=== PATIENT | female | born 1965 | race Caucasian/White ===

== ENCOUNTER 2023-12-15 16:44 | Inpatient (IN) | payer OTHER ==
[~2023-12-15] VITALS: Ht 165.1 cm; Wt 59.4 kg
[2023-12-15] MEDS: IV NS 0.9% 1,000 ML BAG IV ONE ×2 (17:25→18:49)
[2023-12-15 17:42] LABS: BASOPHILS % (AUTO) 0.5 % (0.0-2.0); EOSINOPHILS % (AUTO) 0.1 % (0.0-6.0); HEMATOCRIT 40 % (33-45); HEMOGLOBIN 13.1 g/dL (11.5-14.8); LYMPHOCYTES # (AUTO) 3.1 K/uL (0.8-4.8); LYMPHOCYTES % (AUTO) 30.9 % (20.0-44.0); MEAN CORPUSCULAR HEMOGLOBIN 28 PG (26.0-33.0); MEAN CORPUSCULAR HGB CONC 33 g/dl (31.0-36.0); MEAN CORPUSCULAR VOLUME 87 fL (82-100); MONOCYTES # (AUTO) 0.3 K/uL (0.1-1.30); MONOCYTES % (AUTO) 3.5 % (2.0-12.0); NEUTROPHILS # (AUTO) 6.5 K/uL (1.8-8.9); PLATELET COUNT (AUTO) 211 K/uL (150-450); RED BLOOD CELL COUNT(AUTO) 4.61 MIL/uL (4.0-5.2); RED CELL DISTRIBUTION WIDTH 14.8 % (11.5-15.0)
[2023-12-15 17:51] LABS: CALCIUM, SERUM 8.4 mg/dL (8.5-10.1); CARBON DIOXIDE 24 mmol/L (21-32); CHLORIDE 96 mmol/L (98-107); CREATININE 4.4 mg/dL (0.6-1.3); GLUCOSE 112 mg/dL (74-106); POTASSIUM 4.8 mmol/L (3.5-5.1); SODIUM SERUM 135 mmol/L (136-145)
[2023-12-15 17:57] LABS: ALANINE AMINOTRANSFERASE 100 U/L (12-78); ALBUMIN 3.7 g/dL (3.4-5.0); ALCOHOL, BLOOD 121 mg/dL (0-10); ALKALINE PHOSPHATASE 156 U/L (46-116); ASPARTATE AMINOTRANSFERASE 107 U/L (15-37); BILIRUBIN,TOTAL 0.5 mg/dL (0.2-1.0); SALICYLATE 6.3 mg/dL (2.8-20.0); TOTAL PROTEIN, SERUM 7.8 g/dL (6.4-8.2)
[2023-12-15 18:01] LABS: UREA NITROGEN, BLOOD 86 mg/dL (7-18)
[2023-12-15 18:04] LABS: THYROID STIMULATING HORMONE 0.213 uIU/mL (0.358-3.74)
[2023-12-15 18:10] LABS: INR 0.97 (0.91-1.10); PARTIAL THROMBOPLASTIN TIME 27.9 SEC (24.3-34.3); PROTHROMBIN TIME 10.3 SECS (9.2-11.1)
[2023-12-15 18:11] LABS: APPEARANCE,URINE CLEAR (CLEAR); BILIRUBIN,URINE NEGATIVE (NEGATIVE); BLOOD, URINE 1+ Ery/uL (NEGATIVE); COLOR,URINE YELLOW (YELLOW); KETONES,URINE NEGATIVE (NEGATIVE); LEUKOCYTE ESTERASE ,URINE NEGATIVE (NEGATIVE); NITRITE, URINE NEGATIVE (NEGATIVE); PH,URINE 5.5 (5.0-8.0); PROTEIN,URINE TRACE mg/dl (NEGATIVE); UGLUCOSE NEGATIVE (NEGATIVE); UROBILINOGEN,URINE 0.2 EU/dL (0.2)
[2023-12-15 18:18] LABS: AMPHETAMINE, URINE NEGATIVE (NEGATIVE); BARBITURATE, URINE NEGATIVE (NEGATIVE); BENZODIAZEPINE, URINE NEGATIVE (NEGATIVE); CANNABINOID, URINE NEGATIVE (NEGATIVE); COCCAINE, URINE NEGATIVE (NEGATIVE); OPIATE, URINE NEGATIVE (NEGATIVE); PHENCYCLIDINE SCREEN,URINE NEGATIVE (NEGATIVE)
[2023-12-15 18:28] LABS: ADD URINE CULTURE NO; BACTERIA,URINE None seen /HPF (None Seen); URINE AMORPHOUS URATE Few /HPF (None Seen); WBC,URINE 0-2 /HPF (0-3)
[2023-12-15 18:42] LABS: BILIRUBIN,DIRECT 0.2 mg/dL (0.0-0.2)
[2023-12-15 18:45] LABS: ACETAMINOPHEN <10 ug/ml (10-30)
[2023-12-15] MEDS ORDERED: OLANZAPINE 10 MG VIAL IM ONE ×2 (19:00→19:32)
[2023-12-15] MEDS: OLANZAPINE 10 MG VIAL IM ONE (19:38)
[2023-12-15 22:40] VITALS: BP 142/81; TEMP 99.3; O2SAT 99
[2023-12-15] MEDS ORDERED: ONDANSETRON HCL/PF 4 MG/2 ML VIAL IVP PRN (23:30)
[2023-12-15] MEDS ORDERED: MAGNESIUM HYDROXIDE 30 ML UDC PO PRN (23:30)
[2023-12-15] MEDS ORDERED: MAG HYDROX/AL HYDROX/SIMETH 30 ML UDC PO PRN (23:30)
[2023-12-15] MEDS ORDERED: Z GUARD REMEDY 4 OZ OINT TP PRN (23:30)
[2023-12-15] MEDS ORDERED: ZOLPIDEM TARTRATE 5 MG TABLET PO PRN (23:30)
[2023-12-15] MEDS: IV NS 0.9% 1,000 ML IV PRN (23:45)
[2023-12-15 23:47] VITALS: BP 174/79; TEMP 99.3; O2SAT 92
[2023-12-15 23:53] VITALS: BP 142/81; TEMP 99.3; O2SAT 100
[2023-12-16] VITALS: BP 149/83; TEMP 98.6; O2SAT 96
[2023-12-16] MEDS: LORAZEPAM INJ 2 MG/ML VIAL IV PRN (03:34)
[2023-12-16 04:00] VITALS: BP 142/78; TEMP 99; O2SAT 97
[2023-12-16 04:28] VITALS: BP 142/78; TEMP 99; O2SAT 97
[2023-12-16 07:23] LABS: ALBUMIN 3.1 g/dL (3.4-5.0); BILIRUBIN,DIRECT 0.2 mg/dL (0.0-0.2); BILIRUBIN,TOTAL 0.6 mg/dL (0.2-1.0); CALCIUM, SERUM 7.5 mg/dL (8.5-10.1); PHOSPHORUS 2.9 mg/dL (2.5-4.9); POTASSIUM 4.2 mmol/L (3.5-5.1); TOTAL PROTEIN, SERUM 6.7 g/dL (6.4-8.2)
[2023-12-16 07:27] LABS: MAGNESIUM 1.1 mg/dL (1.8-2.4)
[2023-12-16 07:30] VITALS: BP 154/89; TEMP 98.1; O2SAT 95
[2023-12-16] MEDS: PANTOPRAZOLE 40 MG TABLET.DR PO SCH (07:30)
[2023-12-16] MEDS: DEXTROSE 50%-WATER 50 ML DISP.SYRIN IV PRN (07:49)
[2023-12-16] MEDS: IV D5/ 0.9% NACL 1,000 ML IV PRN (07:55)
[2023-12-16 09:24] LABS: BASOPHILS % (AUTO) 0.3 % (0.0-2.0); EOSINOPHILS % (AUTO) 0.1 % (0.0-6.0); HEMATOCRIT 33 % (33-45); HEMOGLOBIN 10.8 g/dL (11.5-14.8); LYMPHOCYTES # (AUTO) 3.8 K/uL (0.8-4.8); LYMPHOCYTES % (AUTO) 27.5 % (20.0-44.0); MEAN CORPUSCULAR HEMOGLOBIN 29 PG (26.0-33.0); MEAN CORPUSCULAR HGB CONC 32 g/dl (31.0-36.0); MEAN CORPUSCULAR VOLUME 88 fL (82-100); MONOCYTES # (AUTO) 0.7 K/uL (0.1-1.30); MONOCYTES % (AUTO) 5.4 % (2.0-12.0); NEUTROPHILS # (AUTO) 9.3 K/uL (1.8-8.9); NEUTROPHILS % (AUTO) 66.7 % (43.0-81.0); PLATELET COUNT (AUTO) 163 K/uL (150-450); RED BLOOD CELL COUNT(AUTO) 3.78 MIL/uL (4.0-5.2)
[2023-12-16] MEDS: Magnesium 1GM/D5W 100ML PREMIX 100 ML IV SCH (12:48)
[2023-12-16] MEDS ORDERED: GLIP10TA11 PO (14:18)
[2023-12-16] MEDS ORDERED: CALC-1239 PO (14:18)
[2023-12-16] MEDS ORDERED: INSU100I26 SQ (14:18)
[2023-12-16] MEDS ORDERED: MAGN64TA7 PO (14:18)
[2023-12-16] MEDS ORDERED: ESCI5TAB PO (14:18)
[2023-12-16] MEDS ORDERED: SITA100T PO (14:18)
[2023-12-16] MEDS ORDERED: ATOR10TA PO (14:18)
[2023-12-16] MEDS ORDERED: LISI-768 PO (14:18)
[2023-12-16] MEDS ORDERED: QUET200T PO (14:18)
[2023-12-16] MEDS ORDERED: BUPR348T PO (14:18)
[2023-12-16] MEDS ORDERED: IBUP-1953 PO (14:18)
[2023-12-16] MEDS ORDERED: GABA-532 PO (14:18)
[2023-12-16] MEDS ORDERED: TRAZ-182 PO (14:18)
[2023-12-16] MEDS ORDERED: OMEP20CA15 PO (14:18)
[2023-12-16] MEDS ORDERED: FOLI0.8C PO (14:18)
[2023-12-16] MEDS ORDERED: [UNRECOGNIZED DRUG - OTHER] PO (14:18)
[2023-12-16] MEDS: CEFEPIME 1 GM in IV D5W 50 ML IV SCH (14:31)
[2023-12-16 16:00] VITALS: BP 158/88; TEMP 99.1; O2SAT 96
[2023-12-16 20:00] VITALS: BP 143/93; TEMP 99.5; O2SAT 96
[2023-12-17] VITALS (8 sets, daily range): BP systolic 140–148; BP diastolic 78–105; TEMP 98.2–99.6; O2SAT 95–97
[2023-12-17 07:11] LABS: BASOPHILS # (AUTO) 0.1 K/uL (0.0-0.2); BASOPHILS % (AUTO) 0.4 % (0.0-2.0); EOSINOPHILS # (AUTO) 0.1 K/uL (0.0-0.7); EOSINOPHILS % (AUTO) 0.6 % (0.0-6.0); HEMATOCRIT 32 % (33-45); HEMOGLOBIN 10.4 g/dL (11.5-14.8); LYMPHOCYTES # (AUTO) 3.7 K/uL (0.8-4.8); LYMPHOCYTES % (AUTO) 31.2 % (20.0-44.0); MEAN CORPUSCULAR HEMOGLOBIN 29 PG (26.0-33.0); MEAN CORPUSCULAR HGB CONC 33 g/dl (31.0-36.0); MEAN CORPUSCULAR VOLUME 88 fL (82-100); MONOCYTES # (AUTO) 0.7 K/uL (0.1-1.30); MONOCYTES % (AUTO) 5.8 % (2.0-12.0); NEUTROPHILS # (AUTO) 7.3 K/uL (1.8-8.9); PLATELET COUNT (AUTO) 117 K/uL (150-450); RED CELL DISTRIBUTION WIDTH 14.6 % (11.5-15.0); WHITE BLOOD COUNT (AUTO) 11.8 K/uL (4.3-11.0)
[2023-12-17 07:31] LABS: ALBUMIN 2.9 g/dL (3.4-5.0); BILIRUBIN,TOTAL 0.9 mg/dL (0.2-1.0); CREATININE 1.5 mg/dL (0.6-1.3); MAGNESIUM 1.3 mg/dL (1.8-2.4); PHOSPHORUS 1.9 mg/dL (2.5-4.9); POTASSIUM 3.7 mmol/L (3.5-5.1); TOTAL PROTEIN, SERUM 6.4 g/dL (6.4-8.2)
[2023-12-17] MEDS: Magnesium 1GM/D5W 100ML PREMIX 100 ML IV SCH (09:23)
[2023-12-17] MEDS ORDERED: DEXTROSE 50%-WATER 50 ML DISP.SYRIN IV PRN (13:00)
[2023-12-17] MEDS: Sodium Phosphate 15 MMOL in IV NS 0.9% 245 ML IV SCH (16:14)
[2023-12-17] MEDS: BLOOD SUGAR DIAGNOSTIC 1 EACH STRIP IN SCH (17:34)
[2023-12-17] MEDS: INSULIN REGULAR, HUMAN 100 UNIT/ML 3 ML VIAL SQ PRN (18:18)
[2023-12-18] VITALS (7 sets, daily range): BP systolic 113–156; BP diastolic 83–96; TEMP 97.5–99; O2SAT 94–96
[2023-12-18 06:44] LABS: BASOPHILS % (AUTO) 0.4 % (0.0-2.0); EOSINOPHILS # (AUTO) 0.4 K/uL (0.0-0.7); EOSINOPHILS % (AUTO) 4.2 % (0.0-6.0); HEMATOCRIT 32 % (33-45); HEMOGLOBIN 10.4 g/dL (11.5-14.8); LYMPHOCYTES # (AUTO) 3.7 K/uL (0.8-4.8); LYMPHOCYTES % (AUTO) 36.3 % (20.0-44.0); MEAN CORPUSCULAR HEMOGLOBIN 29 PG (26.0-33.0); MEAN CORPUSCULAR HGB CONC 33 g/dl (31.0-36.0); MEAN CORPUSCULAR VOLUME 89 fL (82-100); MONOCYTES # (AUTO) 0.5 K/uL (0.1-1.30); MONOCYTES % (AUTO) 4.9 % (2.0-12.0); NEUTROPHILS # (AUTO) 5.5 K/uL (1.8-8.9); NEUTROPHILS % (AUTO) 54.2 % (43.0-81.0); PLATELET COUNT (AUTO) 108 K/uL (150-450); RED BLOOD CELL COUNT(AUTO) 3.56 MIL/uL (4.0-5.2); RED CELL DISTRIBUTION WIDTH 14.1 % (11.5-15.0); WHITE BLOOD COUNT (AUTO) 10.1 K/uL (4.3-11.0)
[2023-12-18 06:54] LABS: CALCIUM, SERUM 8.2 mg/dL (8.5-10.1); CREATININE 1.1 mg/dL (0.6-1.3); MAGNESIUM 1.3 mg/dL (1.8-2.4); PHOSPHORUS 3.1 mg/dL (2.5-4.9); POTASSIUM 3.7 mmol/L (3.5-5.1)
[2023-12-18 08:07] LABS: PTH, INTACT 92 pg/mL (15-65)
[2023-12-18] MEDS: MAGNESIUM OXIDE 400 MG TABLET PO ONE (09:49)
[2023-12-18 10:10] LABS: *SPE A/G RATIO 1.1 (0.7-1.7); *SPE ALBUMIN 3.2 g/dL (2.9-4.4); *SPE ALPHA-1-GLOBULIN 0.2 g/dL (0.0-0.4); *SPE ALPHA-2-GLOBULIN 0.8 g/dL (0.4-1.0); *SPE BETA GLOBULIN 0.8 g/dL (0.7-1.3); *SPE M-SPIKE Not Observed g/dL (Not Observed); *SPE PROTEIN TOTAL 6.2 g/dL (6.0-8.5); *SPEGAMMA GLOBULIN 1.2 g/dL (0.4-1.8)
[2023-12-18] MEDS: IV NS 0.9% 1,000 ML IV PRN (12:24)
[2023-12-19 08:00] VITALS: BP 154/92; TEMP 98.6; O2SAT 98
[2023-12-19] MEDS: CEFEPIME 2 GM in IV D5W 100 ML IV SCH (09:05)
[2023-12-19] MEDS ORDERED: QUETIAPINE FUMARATE 25 MG TABLET PO PRN (12:30)
[2023-12-19] MEDS: QUETIAPINE FUMARATE 25 MG TABLET PO SCH ×2 (13:54→21:58)
[2023-12-19 16:00] VITALS: BP 150/100; TEMP 98.4; O2SAT 98
[2023-12-19 19:54] VITALS: BP 142/94; TEMP 99.1; O2SAT 98
[2023-12-20 07:00] VITALS: BP 176/92; TEMP 98.4; O2SAT 98
[2023-12-20] MEDS: ACETAMINOPHEN 325 MG TABLET PO PRN (08:58)
[2023-12-20] MEDS ORDERED: Quetiapine Fumarate PO ×2 (11:10)
[2023-12-20] MEDS ORDERED: LEVO500T90 PO (11:10)
== END 2023-12-20 13:50 | DRG 177 ==
LOC: ER 16:48 → TELE 21:36 → MED 12-18 11:29
PROVIDERS: ADMIT Student in an Organized Health Care Education/Training Program; ATTEND Nurse Practitioner Acute Care
DX: J69.0 Pneumonitis due to inhalation of food and vomit (principal); G92.8 Other toxic encephalopathy; N17.0 Acute kidney failure with tubular necrosis; E87.1 Hypo-osmolality and hyponatremia; F05 Delirium due to known physiological condition; M62.82 Rhabdomyolysis; F10.129 Alcohol abuse with intoxication, unspecified; R74.01 Elevation of levels of liver transaminase levels; E11.65 Type 2 diabetes mellitus with hyperglycemia; Y90.6 Blood alcohol level of 120-199 mg/100 ml; R94.6 Abnormal results of thyroid function studies; F29 Unspecified psychosis not due to a substance or known physiological condition; F25.9 Schizoaffective disorder, unspecified; Z79.84 Long term (current) use of oral hypoglycemic drugs; E11.649 Type 2 diabetes mellitus with hypoglycemia without coma
CPT/HCPCS: 36415; 70450-TC; 71045-TC; 72125-TC; 80048-TC; 80053-TC; 80061-TC; 80076-TC; 81001; 82140-TC; 82550-TC; 82553; 82962-TC; 83735-TC; 83970; 84100-TC; 84155; 84165; 84443-TC; 85025-TC; 85730-TC; 92526; 92611-TC; 97110-TC; 97116-TC; 97530-TC; A4223; A6253; A9563; G0378; G0480; J0692; J1815; J2060; J3475; J3490; J7030; J7042; J7050; J7060

== ENCOUNTER 2024-01-02 06:34 | Emergency (ER) | payer OTHER ==
[~2024-01-02] VITALS: Ht 154.9 cm; Wt 64.0 kg
[~2024-01-02 06:34] MED LIST: ATOR10TA PO; CALC-1239 PO; FOLI0.8C PO; GABA-532 PO; GLIP10TA11 PO; IBUP-1953 PO; INSU100I26 SQ; LEVO500T90 PO; LISI-768 PO; MAGN64TA7 PO; OMEP20CA15 PO; Quetiapine Fumarate PO; SITA100T PO; [UNRECOGNIZED DRUG - OTHER] PO
[2024-01-02] MEDS ORDERED: OLANZAPINE 10 MG VIAL IM ONE (07:04)
[2024-01-02] MEDS: OLANZAPINE 10 MG VIAL IM ONE (07:08)
[2024-01-02] MEDS ORDERED: LORAZEPAM INJ 2 MG/ML VIAL ONE (07:55)
[2024-01-02] MEDS: LORAZEPAM INJ 2 MG/ML VIAL IV ONE (08:01)
[2024-01-02 08:09] LABS: BASOPHILS # (AUTO) 0.1 K/uL (0.0-0.2); BASOPHILS % (AUTO) 0.8 % (0.0-2.0); EOSINOPHILS # (AUTO) 0.2 K/uL (0.0-0.7); EOSINOPHILS % (AUTO) 1.7 % (0.0-6.0); HEMATOCRIT 30 % (33-45); HEMOGLOBIN 9.4 g/dL (11.5-14.8); LYMPHOCYTES # (AUTO) 3.9 K/uL (0.8-4.8); LYMPHOCYTES % (AUTO) 34.4 % (20.0-44.0); MEAN CORPUSCULAR HEMOGLOBIN 28 PG (26.0-33.0); MEAN CORPUSCULAR HGB CONC 32 g/dl (31.0-36.0); MEAN CORPUSCULAR VOLUME 88 fL (82-100); MONOCYTES # (AUTO) 0.4 K/uL (0.1-1.30); MONOCYTES % (AUTO) 3.4 % (2.0-12.0); NEUTROPHILS # (AUTO) 6.8 K/uL (1.8-8.9); NEUTROPHILS % (AUTO) 59.7 % (43.0-81.0); PLATELET COUNT (AUTO) 336 K/uL (150-450); RED BLOOD CELL COUNT(AUTO) 3.36 MIL/uL (4.0-5.2); RED CELL DISTRIBUTION WIDTH 14.8 % (11.5-15.0); WHITE BLOOD COUNT (AUTO) 11.4 K/uL (4.3-11.0)
[2024-01-02 09:11] LABS: ALANINE AMINOTRANSFERASE 21 U/L (12-78); ALBUMIN 3.6 g/dL (3.4-5.0); ALCOHOL, BLOOD 188 mg/dL (0-10); ALKALINE PHOSPHATASE 127 U/L (46-116); ASPARTATE AMINOTRANSFERASE 18 U/L (15-37); BILIRUBIN,DIRECT 0.1 mg/dL (0.0-0.2); BILIRUBIN,TOTAL 0.2 mg/dL (0.2-1.0); CALCIUM, SERUM 8.7 mg/dL (8.5-10.1); CARBON DIOXIDE 21 mmol/L (21-32); CHLORIDE 109 mmol/L (98-107); CREATININE 1.8 mg/dL (0.6-1.3); GLUCOSE 124 mg/dL (74-106); SALICYLATE 3.1 mg/dL (2.8-20.0); SODIUM SERUM 143 mmol/L (136-145); TOTAL PROTEIN, SERUM 7.5 g/dL (6.4-8.2); UREA NITROGEN, BLOOD 41 mg/dL (7-18)
[2024-01-02 09:16] LABS: ACETAMINOPHEN <10 ug/ml (10-30)
[2024-01-02 09:35] LABS: APPEARANCE,URINE CLEAR (CLEAR); BILIRUBIN,URINE NEGATIVE (NEGATIVE); BLOOD, URINE NEGATIVE Ery/uL (NEGATIVE); COLOR,URINE YELLOW (YELLOW); KETONES,URINE NEGATIVE (NEGATIVE); LEUKOCYTE ESTERASE ,URINE NEGATIVE (NEGATIVE); NITRITE, URINE NEGATIVE (NEGATIVE); PROTEIN,URINE NEGATIVE (NEGATIVE); UGLUCOSE NEGATIVE (NEGATIVE); UROBILINOGEN,URINE 0.2 EU/dL (0.2)
[2024-01-02] MEDS: IV NS 0.9% 1,000 ML BAG IV ONE (10:17)
[2024-01-02 10:27] LABS: AMPHETAMINE, URINE NEGATIVE (NEGATIVE); BARBITURATE, URINE NEGATIVE (NEGATIVE); BENZODIAZEPINE, URINE NEGATIVE (NEGATIVE); CANNABINOID, URINE NEGATIVE (NEGATIVE); COCCAINE, URINE NEGATIVE (NEGATIVE); OPIATE, URINE NEGATIVE (NEGATIVE); PHENCYCLIDINE SCREEN,URINE NEGATIVE (NEGATIVE)
[2024-01-02 12:33] LABS: CALCIUM, SERUM 8.6 mg/dL (8.5-10.1); CREATININE 1.3 mg/dL (0.6-1.3); POTASSIUM 3.9 mmol/L (3.5-5.1)
[2024-01-02 15:45] VITALS: BP 128/78; TEMP 97.9; O2SAT 97
== END 2024-01-02 15:46 ==
LOC: ER 06:43
DX: N17.9 Acute kidney failure, unspecified (principal); E86.0 Dehydration; F10.229 Alcohol dependence with intoxication, unspecified; Z79.899 Other long term (current) drug therapy; Y90.6 Blood alcohol level of 120-199 mg/100 ml
CPT/HCPCS: 99285; 96372; 96374; 96361; 51701; 85025; 80048 ×2; 80076; 81003; 36415; 80143; 80320 ×2; 80307; J2060; J3490; G0480

== ENCOUNTER 2024-01-13 02:35 | Inpatient (IN) | payer OTHER ==
[~2024-01-13] VITALS: Ht 157.5 cm; Wt 63.5 kg
[2024-01-13 03:33] LABS: BASOPHILS # (AUTO) 0.3 K/uL (0.0-0.2); BASOPHILS % (AUTO) 1.8 % (0.0-2.0); EOSINOPHILS # (AUTO) 0.3 K/uL (0.0-0.7); EOSINOPHILS % (AUTO) 2.1 % (0.0-6.0); HEMATOCRIT 31 % (33-45); HEMOGLOBIN 10.1 g/dL (11.5-14.8); LYMPHOCYTES # (AUTO) 4.8 K/uL (0.8-4.8); MEAN CORPUSCULAR HEMOGLOBIN 28 PG (26.0-33.0); MEAN CORPUSCULAR HGB CONC 32 g/dl (31.0-36.0); MEAN CORPUSCULAR VOLUME 87 fL (82-100); MONOCYTES # (AUTO) 0.5 K/uL (0.1-1.30); MONOCYTES % (AUTO) 3.3 % (2.0-12.0); NEUTROPHILS # (AUTO) 9.2 K/uL (1.8-8.9); NEUTROPHILS % (AUTO) 60.8 % (43.0-81.0); PLATELET COUNT (AUTO) 244 K/uL (150-450); RED BLOOD CELL COUNT(AUTO) 3.59 MIL/uL (4.0-5.2); RED CELL DISTRIBUTION WIDTH 14.5 % (11.5-15.0); WHITE BLOOD COUNT (AUTO) 15.1 K/uL (4.3-11.0)
[2024-01-13] MEDS ORDERED: QUETIAPINE FUMARATE 100 MG TABLET ONE (03:36)
[2024-01-13] MEDS: QUETIAPINE FUMARATE 100 MG TABLET PO SCH (03:38)
[2024-01-13 03:39] LABS: APPEARANCE,URINE CLEAR (CLEAR); BILIRUBIN,URINE NEGATIVE (NEGATIVE); BLOOD, URINE 2+ Ery/uL (NEGATIVE); COLOR,URINE YELLOW (YELLOW); KETONES,URINE NEGATIVE (NEGATIVE); LEUKOCYTE ESTERASE ,URINE 1+ (NEGATIVE); NITRITE, URINE NEGATIVE (NEGATIVE); PROTEIN,URINE NEGATIVE (NEGATIVE); UGLUCOSE NEGATIVE (NEGATIVE); UROBILINOGEN,URINE 0.2 EU/dL (0.2)
[2024-01-13 03:40] LABS: ADD URINE CULTURE YES; BACTERIA,URINE Rare /HPF (None Seen); SQUAMOUS EPITHELIAL CELL,UR Rare /HPF (None Seen)
[2024-01-13 04:01] LABS: CALCIUM, SERUM 7.7 mg/dL (8.5-10.1); CARBON DIOXIDE 17 mmol/L (21-32); CHLORIDE 103 mmol/L (98-107); CREATININE 2.1 mg/dL (0.6-1.3); GLUCOSE 146 mg/dL (74-106); POTASSIUM 3.5 mmol/L (3.5-5.1); SODIUM SERUM 141 mmol/L (136-145); UREA NITROGEN, BLOOD 42 mg/dL (7-18)
[2024-01-13 04:06] LABS: AMPHETAMINE, URINE NEGATIVE (NEGATIVE); BARBITURATE, URINE NEGATIVE (NEGATIVE); BENZODIAZEPINE, URINE NEGATIVE (NEGATIVE); CANNABINOID, URINE NEGATIVE (NEGATIVE); COCCAINE, URINE NEGATIVE (NEGATIVE); OPIATE, URINE NEGATIVE (NEGATIVE); PHENCYCLIDINE SCREEN,URINE NEGATIVE (NEGATIVE)
[2024-01-13 04:09] LABS: ALANINE AMINOTRANSFERASE 25 U/L (12-78); ALBUMIN 3.7 g/dL (3.4-5.0); ALCOHOL, BLOOD 139 mg/dL (0-10); ALKALINE PHOSPHATASE 167 U/L (46-116); ASPARTATE AMINOTRANSFERASE 19 U/L (15-37); BILIRUBIN,DIRECT 0.1 mg/dL (0.0-0.2); BILIRUBIN,TOTAL 0.3 mg/dL (0.2-1.0); TOTAL PROTEIN, SERUM 7.7 g/dL (6.4-8.2)
[2024-01-13 04:10] LABS: ACETAMINOPHEN <10 ug/ml (10-30); SALICYLATE 1.5 mg/dL (2.8-20.0)
[2024-01-13 04:28] LABS: ACETONE, SERUM NEGATIVE (NEGATIVE)
[2024-01-13 04:38] LABS: THYROID STIMULATING HORMONE 1.115 uIU/mL (0.358-3.74)
[2024-01-13] MEDS: IV NS 0.9% 1,000 ML BAG IV ONE (04:49)
[2024-01-13] MEDS ORDERED: LORAZEPAM INJ 2 MG/ML VIAL ONE (05:32)
[2024-01-13] MEDS: LORAZEPAM INJ 2 MG/ML VIAL IV ONE (05:33)
[2024-01-13] MEDS ORDERED: MAGNESIUM HYDROXIDE 30 ML UDC PO PRN (06:30)
[2024-01-13] MEDS ORDERED: ONDANSETRON HCL/PF 4 MG/2 ML VIAL IVP PRN (06:30)
[2024-01-13] MEDS ORDERED: ACETAMINOPHEN 325 MG TABLET PO PRN (06:30)
[2024-01-13] MEDS ORDERED: Z GUARD REMEDY 4 OZ OINT TP PRN (06:30)
[2024-01-13] MEDS ORDERED: IV NS 0.9% 1,000 ML IV PRN (06:30)
[2024-01-13] MEDS ORDERED: PANTOPRAZOLE 40 MG TABLET.DR PO ONE (07:44)
[2024-01-13] MEDS: PANTOPRAZOLE 40 MG TABLET.DR PO SCH (07:44)
[2024-01-13] MEDS ORDERED: LORAZEPAM INJ 2 MG/ML VIAL IV PRN (08:00)
[2024-01-13] MEDS ORDERED: CEFTRIAXONE 1GM BAG (ER ONLY) 50 ML IV ONE (08:30)
[2024-01-13] MEDS: CEFTRIAXONE 1 G in IV D5W 50 ML IV SCH (08:31)
[2024-01-13 09:30] VITALS: TEMP 98.7; O2SAT 98
[2024-01-13] MEDS ORDERED: DEXTROSE 50%-WATER 50 ML DISP.SYRIN IV PRN (12:00)
[2024-01-13] MEDS: IV NS 0.9% 1,000 ML IV SCH (12:45)
[2024-01-13] MEDS: CHLORDIAZEPOXIDE HCL 25 MG CAPSULE PO SCH (12:46)
[2024-01-13] MEDS: QUETIAPINE FUMARATE 25 MG TABLET PO SCH ×2 (12:46→22:53)
[2024-01-13] MEDS: BLOOD SUGAR DIAGNOSTIC 1 EACH STRIP VI SCH (13:25)
[2024-01-13] MEDS: INSULIN GLARGINE, 100 UNIT/ML CARTRIDGE SQ SCH (13:26)
[2024-01-13] MEDS ORDERED: OMEPRAZOLE 20 MG CAPSULE.DR PO SCH (17:00)
[2024-01-13] MEDS: *INSULIN REGULAR(HUMULIN R)HUM 100 UNIT/ML VIAL SQ PRN (22:49)
[2024-01-13] MEDS: ATORVASTATIN 10 MG TABLET PO SCH (22:51)
[2024-01-13] MEDS: GABAPENTIN 100 MG CAPSULE PO SCH (22:52)
[2024-01-14 08:10] LABS: CALCIUM, SERUM 7.1 mg/dL (8.5-10.1); CREATININE 1.2 mg/dL (0.6-1.3); PHOSPHORUS 2.7 mg/dL (2.5-4.9); POTASSIUM 4.1 mmol/L (3.5-5.1)
[2024-01-14 08:14] LABS: BASOPHILS # (AUTO) 0.1 K/uL (0.0-0.2); BASOPHILS % (AUTO) 0.7 % (0.0-2.0); EOSINOPHILS # (AUTO) 0.3 K/uL (0.0-0.7); HEMATOCRIT 30 % (33-45); HEMOGLOBIN 9.8 g/dL (11.5-14.8); LYMPHOCYTES # (AUTO) 3.8 K/uL (0.8-4.8); LYMPHOCYTES % (AUTO) 37.4 % (20.0-44.0); MEAN CORPUSCULAR HEMOGLOBIN 29 PG (26.0-33.0); MEAN CORPUSCULAR HGB CONC 32 g/dl (31.0-36.0); MEAN CORPUSCULAR VOLUME 88 fL (82-100); MONOCYTES # (AUTO) 0.5 K/uL (0.1-1.30); MONOCYTES % (AUTO) 5.1 % (2.0-12.0); NEUTROPHILS # (AUTO) 5.4 K/uL (1.8-8.9); NEUTROPHILS % (AUTO) 53.8 % (43.0-81.0); PLATELET COUNT (AUTO) 187 K/uL (150-450); RED BLOOD CELL COUNT(AUTO) 3.43 MIL/uL (4.0-5.2); RED CELL DISTRIBUTION WIDTH 14.5 % (11.5-15.0); WHITE BLOOD COUNT (AUTO) 10.1 K/uL (4.3-11.0)
[2024-01-14 08:20] VITALS: BP 147/89
[2024-01-14] MEDS: LISINOPRIL (5MG) 5 MG TABLET PO SCH (08:20)
[2024-01-14] MEDS: INSULIN REGULAR, HUMAN 100 UNIT/ML 3 ML VIAL SQ PRN (08:23)
[2024-01-14 08:51] LABS: MAGNESIUM 1.2 mg/dL (1.8-2.4)
[2024-01-14] MEDS: MAG HYDROX/AL HYDROX/SIMETH 30 ML UDC PO PRN (09:37)
[2024-01-14] MEDS: Magnesium 1GM/D5W 100ML PREMIX 100 ML IV SCH (10:29)
[2024-01-14 13:30] LABS: CREATININE, URINE 31.6 MG/DL (30.0-125.0); URINE TOTAL PROTEIN 6.3 mg/dL (0-11.9)
[2024-01-14] MEDS: MAGNESIUM OXIDE 400 MG TABLET PO ONE (14:08)
[2024-01-14] MEDS: IV LR 1000 ML 1,000 ML IV ONE (15:02)
== END 2024-01-14 17:04 | disposition left against medical advice (07) | DRG 871 ==
LOC: ER 02:39 → TELE1 11:09
PROVIDERS: ADMIT Internal Medicine; ATTEND Nurse Practitioner Family
DX: A41.9 Sepsis, unspecified organism (principal); G92.8 Other toxic encephalopathy; N17.0 Acute kidney failure with tubular necrosis; N39.0 Urinary tract infection, site not specified; E87.20 Acidosis, unspecified; R65.20 Severe sepsis without septic shock; Z20.822 Contact with and (suspected) exposure to COVID-19; Z79.84 Long term (current) use of oral hypoglycemic drugs; Z79.4 Long term (current) use of insulin; Z79.899 Other long term (current) drug therapy; E78.5 Hyperlipidemia, unspecified; E11.22 Type 2 diabetes mellitus with diabetic chronic kidney disease; F31.9 Bipolar disorder, unspecified; F10.129 Alcohol abuse with intoxication, unspecified; Y90.6 Blood alcohol level of 120-199 mg/100 ml; D64.9 Anemia, unspecified; E83.42 Hypomagnesemia; E86.9 Volume depletion, unspecified; I12.9 Hypertensive chronic kidney disease with stage 1 through stage 4 chronic kidney disease, or unspecified chronic kidney disease; N18.9 Chronic kidney disease, unspecified; M89.8X9 Other specified disorders of bone, unspecified site; Z53.29 Procedure and treatment not carried out because of patient's decision for other reasons; Z91.148 Patient's other noncompliance with medication regimen for other reason; B96.89 Other specified bacterial agents as the cause of diseases classified elsewhere
CPT/HCPCS: 36415; 71045-TC; 76770-TC; 80048-TC; 80076-TC; 81001; 82010-TC; 82570-TC; 82962-TC; 83605-TC; 83735-TC; 84100-TC; 84300-TC; 84443-TC; 85025-TC; 87086-TC; G0378; G0480; J0696; J1815; J2060; J3475; J7030; J7060

== ENCOUNTER 2024-10-21 23:43 | Emergency (ER) | payer OTHER, MEDICAID ==
[~2024-10-21] VITALS: Ht 152.4 cm; Wt 65.8 kg
[2024-10-21 23:55] VITALS: BP 155/70; TEMP 98.5; O2SAT 99
== END 2024-10-22 00:48 ==
LOC: ER 23:58
DX: Z02.89 Encounter for other administrative examinations (principal); E11.9 Type 2 diabetes mellitus without complications; I10 Essential (primary) hypertension; Z79.84 Long term (current) use of oral hypoglycemic drugs; Z79.899 Other long term (current) drug therapy

== ENCOUNTER 2025-03-20 18:25 | Inpatient (IN) | payer BC, MEDICAID ==
[~2025-03-20] VITALS: Ht 154.9 cm; Wt 65.8 kg
[2025-03-20] MEDS: IV NS 0.9% 500 ML BAG IV ONE (19:15)
[2025-03-20 19:21] LABS: PLATELET COUNT (AUTO) 197 K/uL (150-450); RED BLOOD CELL COUNT(AUTO) 4.03 MIL/uL (4.0-5.2); RED CELL DISTRIBUTION WIDTH 12.7 % (11.5-15.0); WHITE BLOOD COUNT (AUTO) 15.3 K/uL (4.3-11.0)
[2025-03-20] MEDS: FOLIC ACID 1 MG TABLET PO ONE (19:34)
[2025-03-20] MEDS: Thiamine 100 MG in IV D5W 50 ML IV SCH ×2 (19:35→23:22)
[2025-03-20 19:38] LABS: CALCIUM, SERUM 9.0 mg/dL (8.5-10.1); CREATININE 1.6 mg/dL (0.6-1.3); SODIUM SERUM 135 mmol/L (136-145); UREA NITROGEN, BLOOD 30 mg/dL (7-18)
[2025-03-20 19:44] LABS: ALCOHOL, BLOOD 274 mg/dL (0-10); ASPARTATE AMINOTRANSFERASE 13 U/L (15-37); TOTAL PROTEIN, SERUM 7.3 g/dL (6.4-8.2)
[2025-03-20] MEDS ORDERED: MAGNESIUM HYDROXIDE 30 ML UDC PO PRN (22:00)
[2025-03-20] MEDS ORDERED: LORAZEPAM INJ 2 MG/ML VIAL IV PRN (22:00)
[2025-03-20] MEDS ORDERED: MAG HYDROX/AL HYDROX/SIMETH 30 ML UDC PO PRN (22:00)
[2025-03-20] MEDS ORDERED: ONDANSETRON HCL/PF 4 MG/2 ML VIAL IVP PRN (22:00)
[2025-03-20] MEDS ORDERED: Z GUARD REMEDY 4 OZ OINT TP PRN (22:00)
[2025-03-20] MEDS ORDERED: ACETAMINOPHEN 325 MG TABLET PO PRN (22:00)
[2025-03-20] MEDS: QUETIAPINE FUMARATE 25 MG TABLET PO SCH (22:19)
[2025-03-20 22:33] LABS: LACTIC ACID 4.8 mmol/L (0.4-2.0)
[2025-03-20] MEDS: CEFTRIAXONE 1GM BAG (ER ONLY) 50 ML IV ONE (22:40)
[2025-03-20] MEDS: CEFTRIAXONE 1 G in IV D5W 50 ML IV SCH (22:53)
[2025-03-20] MEDS: GABAPENTIN 100 MG CAPSULE PO SCH (23:05)
[2025-03-20] MEDS: ATORVASTATIN 10 MG TABLET PO SCH (23:05)
[2025-03-20] MEDS: CHLORDIAZEPOXIDE HCL 25 MG CAPSULE PO SCH (23:06)
[2025-03-21] VITALS (7 sets, daily range): BP systolic 95–112; BP diastolic 60–67; TEMP 97.1–98.6; O2SAT 94–98
[2025-03-21] MEDS: INSULIN GLARGINE,BASAGLAR 100 UNIT/ML INSULN.PEN SQ SCH (00:22)
[2025-03-21] MEDS ORDERED: DEXTROSE 50%-WATER 50 ML DISP.SYRIN IV PRN (01:00)
[2025-03-21] MEDS: *INSULIN REGULAR(HUMULIN R)HUM 100 UNIT/ML VIAL SQ PRN (01:29)
[2025-03-21] MEDS: IV NS 0.9% 1,000 ML IV PRN (02:16)
[2025-03-21 07:09] LABS: PLATELET COUNT (AUTO) 163 K/uL (150-450); RED BLOOD CELL COUNT(AUTO) 3.45 MIL/uL (4.0-5.2); RED CELL DISTRIBUTION WIDTH 12.6 % (11.5-15.0); WHITE BLOOD COUNT (AUTO) 9.2 K/uL (4.3-11.0)
[2025-03-21] MEDS: INSULIN REGULAR, HUMAN 100 UNIT/ML 3 ML VIAL SQ PRN (07:53)
[2025-03-21] MEDS: BLOOD SUGAR DIAGNOSTIC 1 EACH STRIP VI SCH (07:53)
[2025-03-21 08:27] LABS: ASPARTATE AMINOTRANSFERASE 11.0 U/L (15-37); CALCIUM, SERUM 7.9 mg/dL (8.5-10.1); CREATININE 1.6 mg/dL (0.6-1.3); PHOSPHORUS 1.9 mg/dL (2.5-4.9); SODIUM SERUM 137.0 mmol/L (136-145); TOTAL PROTEIN, SERUM 6.2 g/dL (6.4-8.2); UREA NITROGEN, BLOOD 29.0 mg/dL (7-18)
[2025-03-21] MEDS: PANTOPRAZOLE 40 MG VIAL IV SCH (08:51)
[2025-03-21] MEDS: NICOTINE PATCH (14MG) 14 MG PATCH.TD24 TD SCH (08:51)
[2025-03-21] MEDS: QUETIAPINE FUMARATE 25 MG TABLET PO SCH (08:52)
[2025-03-21] MEDS: FOLIC ACID 1 MG TABLET PO SCH (08:52)
[2025-03-21] MEDS: LISINOPRIL (5MG) 5 MG TABLET PO SCH (08:52)
[2025-03-21] MEDS: LINAGLIPTIN 5 MG TABLET PO SCH (08:52)
[2025-03-21] MEDS: NEUTRA PHOS 1 POWD.PACKET PO ONE (11:29)
[2025-03-21 12:24] LABS: IRON, SERUM 54 ug/dl (50-175)
[2025-03-21] MEDS: CHLORDIAZEPOXIDE HCL 25 MG CAPSULE PO SCH (16:17)
[2025-03-21] MEDS: CALCIUM CARB 600MG /VIT D 1 EACH TABLET PO SCH (17:23)
[2025-03-21 17:48] LABS: APPEARANCE,URINE CLEAR (CLEAR); BLOOD, URINE NEGATIVE Ery/uL (NEGATIVE); LEUKOCYTE ESTERASE ,URINE NEGATIVE (NEGATIVE); NITRITE, URINE NEGATIVE (NEGATIVE); UGLUCOSE 3+ mg/dL (NEGATIVE)
[2025-03-21 19:30] LABS: ADD URINE CULTURE NO
[2025-03-21 19:38] LABS: EOSINOPHIL,URINE None Seen
[2025-03-21] MEDS: INSULIN GLARGINE, 100 UNIT/ML CARTRIDGE SQ SCH (21:53)
[2025-03-22] VITALS: BP 113/73; TEMP 97.9; O2SAT 98
[2025-03-22 04:00] VITALS: BP 108/63; TEMP 98; O2SAT 98
[2025-03-22 07:34] LABS: PLATELET COUNT (AUTO) 162 K/uL (150-450); RED BLOOD CELL COUNT(AUTO) 3.34 MIL/uL (4.0-5.2); RED CELL DISTRIBUTION WIDTH 12.8 % (11.5-15.0); WHITE BLOOD COUNT (AUTO) 10.7 K/uL (4.3-11.0)
[2025-03-22 07:36] LABS: ASPARTATE AMINOTRANSFERASE 8.0 U/L (15-37); CALCIUM, SERUM 7.6 mg/dL (8.5-10.1); CREATININE 1.3 mg/dL (0.6-1.3); PHOSPHORUS 1.9 mg/dL (2.5-4.9); SODIUM SERUM 141.0 mmol/L (136-145); TOTAL PROTEIN, SERUM 5.7 g/dL (6.4-8.2); UREA NITROGEN, BLOOD 27.0 mg/dL (7-18)
[2025-03-22 07:51] LABS: CREATINE KINASE, TOTAL 46.0 U/L (26-192)
[2025-03-22 07:59] LABS: CREATININE, URINE 180.5 MG/DL (30.0-125.0); URINE SODIUM, RANDOM 9.0 mmol/l (40-220); URINE TOTAL PROTEIN 57.6 mg/dL (0-11.9)
[2025-03-22 08:00] VITALS: BP 123/73; TEMP 98.6; O2SAT 95
[2025-03-22] MEDS ORDERED: Magnesium 1GM/D5W 100ML PREMIX PIGGYBACK IV ONE (09:30)
[2025-03-22] MEDS: FOLIC ACID 1 MG TABLET PO SCH (09:32)
[2025-03-22] MEDS: PANTOPRAZOLE 40 MG TABLET.DR PO SCH (09:32)
[2025-03-22] MEDS: Magnesium 1GM/D5W 100ML PREMIX 100 ML IV SCH (10:01)
[2025-03-22] MEDS: NEUTRA PHOS 1 POWD.PACKET PO ONE (11:12)
[2025-03-22 12:00] VITALS: BP 107/72; TEMP 98.1; O2SAT 97
[2025-03-22 12:55] LABS: CALCIUM, SERUM 8.0 mg/dL (8.5-10.1); CREATININE 1.2 mg/dL (0.6-1.3); SODIUM SERUM 138.0 mmol/L (136-145); UREA NITROGEN, BLOOD 25.0 mg/dL (7-18)
[2025-03-22 16:00] VITALS: BP 119/62; TEMP 98.2; O2SAT 97
[2025-03-22 20:00] VITALS: BP 106/66; TEMP 98.9; O2SAT 97
[2025-03-22] MEDS: THIAMINE HCL 100 MG TABLET PO SCH (21:32)
[2025-03-22] MEDS: INSULIN GLARGINE, 100 UNIT/ML CARTRIDGE SQ SCH (21:41)
[2025-03-23] VITALS: BP 140/73; TEMP 98.4; O2SAT 97
[2025-03-23 04:00] VITALS: BP 132/74; TEMP 98.1; O2SAT 97
[2025-03-23 07:02] LABS: CALCIUM, SERUM 8.6 mg/dL (8.5-10.1); CREATININE 1.3 mg/dL (0.6-1.3); SODIUM SERUM 137.0 mmol/L (136-145); UREA NITROGEN, BLOOD 28.0 mg/dL (7-18)
[2025-03-23 08:00] VITALS: BP 119/78; TEMP 98.6; O2SAT 98
[2025-03-23 08:07] LABS: PTH, INTACT 38 pg/mL (15-65)
[2025-03-23] MEDS ORDERED: MAGNESIUM OXIDE 400 MG TABLET PO SCH (10:00)
[2025-03-23 12:00] VITALS: BP 94/75; TEMP 97.9; O2SAT 98
[2025-03-23] MEDS ORDERED: THIA100T74 PO (13:02)
[2025-03-23] MEDS ORDERED: METF-440 PO (13:02)
== END 2025-03-23 18:20 | disposition home or self-care (01) | DRG 640 ==
LOC: ER 18:30 → TELE1 21:57 → MEDSG1 03-23 13:16
PROVIDERS: ADMIT Nurse Practitioner Acute Care; ATTEND Nurse Practitioner Acute Care
DX: E86.0 Dehydration (principal); G92.8 Other toxic encephalopathy; N17.0 Acute kidney failure with tubular necrosis; D62 Acute posthemorrhagic anemia; R29.6 Repeated falls; W19.XXXA Unspecified fall, initial encounter; S00.83XA Contusion of other part of head, initial encounter; Y92.9 Unspecified place or not applicable; Z91.81 History of falling; E11.65 Type 2 diabetes mellitus with hyperglycemia; Z79.84 Long term (current) use of oral hypoglycemic drugs; Z79.899 Other long term (current) drug therapy; Z79.4 Long term (current) use of insulin; F10.129 Alcohol abuse with intoxication, unspecified; Y90.8 Blood alcohol level of 240 mg/100 ml or more; Z86.73 Personal history of transient ischemic attack (TIA), and cerebral infarction without residual deficits; Z82.49 Family history of ischemic heart disease and other diseases of the circulatory system; Z71.6 Tobacco abuse counseling; E87.20 Acidosis, unspecified; F17.200 Nicotine dependence, unspecified, uncomplicated; E83.42 Hypomagnesemia; E83.39 Other disorders of phosphorus metabolism; E78.5 Hyperlipidemia, unspecified; I10 Essential (primary) hypertension; M89.8X9 Other specified disorders of bone, unspecified site; D72.829 Elevated white blood cell count, unspecified; D69.6 Thrombocytopenia, unspecified; D64.9 Anemia, unspecified; S09.90XA Unspecified injury of head, initial encounter; E86.9 Volume depletion, unspecified
CPT/HCPCS: 36415; 70450-TC; 71045-TC; 80048-TC; 80053-TC; 80076-TC; 81001; 82550-TC; 82570-TC; 82728-TC; 82962-TC; 83540-TC; 83605-TC; 83735-TC; 83970; 84100-TC; 84155; 84165; 84300-TC; 84484-TC; 85025-TC; 87086-TC; 92526; 92611-TC; 97116-TC; 97530-TC; A4223; G0378; G0480; J0696; J1815; J2470; J3411; J3475; J7030; J7040; J7060

== ENCOUNTER 2025-05-04 12:58 | Inpatient (IN) | payer BC, MEDICAID ==
[~2025-05-04] VITALS: Ht 157.5 cm; Wt 56.7 kg
[~2025-05-04 12:58] MED LIST changes: +METF-440 PO; +THIA100T74 PO
[2025-05-04 13:28] LABS: PLATELET COUNT (AUTO) 233 K/uL (150-450); RED BLOOD CELL COUNT(AUTO) 4.04 MIL/uL (4.0-5.2); RED CELL DISTRIBUTION WIDTH 17.4 % (11.5-15.0); WHITE BLOOD COUNT (AUTO) 13.8 K/uL (4.3-11.0)
[2025-05-04] MEDS: IV NS 0.9% 1,000 ML BAG IV ONE ×2 (13:28→13:41)
[2025-05-04] MEDS: LORAZEPAM INJ 2 MG/ML VIAL IVP ONE (13:30)
[2025-05-04 13:53] LABS: ALCOHOL, BLOOD 42.0 mg/dL (0-10); ASPARTATE AMINOTRANSFERASE 30.0 U/L (15-37); CALCIUM, SERUM 7.3 mg/dL (8.5-10.1); CREATININE 3.2 mg/dL (0.6-1.3); SODIUM SERUM 139.0 mmol/L (136-145); TOTAL PROTEIN, SERUM 7.1 g/dL (6.4-8.2); UREA NITROGEN, BLOOD 15.0 mg/dL (7-18)
[2025-05-04] MEDS ORDERED: LORAZEPAM INJ 2 MG/ML VIAL IV PRN (15:30)
[2025-05-04] MEDS ORDERED: Z GUARD REMEDY 4 OZ OINT TP PRN (15:30)
[2025-05-04] MEDS ORDERED: MAGNESIUM HYDROXIDE 30 ML UDC PO PRN (15:30)
[2025-05-04] MEDS ORDERED: ZOLPIDEM TARTRATE 5 MG TABLET PO PRN (15:30)
[2025-05-04] MEDS ORDERED: ACETAMINOPHEN 325 MG TABLET PO PRN (15:30)
[2025-05-04] MEDS: Magnesium 1GM/D5W 100ML PREMIX 100 ML IV SCH (15:50)
[2025-05-04] MEDS ORDERED: FOLIC ACID 1 MG TABLET ONE (15:53)
[2025-05-04] MEDS ORDERED: Magnesium 1GM/D5W 100ML PREMIX 100 ML IV ONE ×2 (15:53→16:18)
[2025-05-04] MEDS ORDERED: POTASSIUM CL. PREMIX PERIPHER. 100 ML ONE (15:53)
[2025-05-04] MEDS ORDERED: MIRT45TA83 PO (15:58)
[2025-05-04] MEDS ORDERED: SERT50TA PO (15:58)
[2025-05-04] MEDS ORDERED: ATOR20TA PO (15:58)
[2025-05-04] MEDS ORDERED: GLIP10TA11 PO (15:58)
[2025-05-04] MEDS ORDERED: METF-440 PO (15:58)
[2025-05-04] MEDS ORDERED: Thiamine 100 MG in IV D5W 50 ML IV SCH (16:00)
[2025-05-04] MEDS: FOLIC ACID 1 MG TABLET PO ONE (16:03)
[2025-05-04] MEDS: POTASSIUM CL. PREMIX PERIPHER. 50 ML IV SCH (16:06)
[2025-05-04 16:15] LABS: AMPHETAMINE, URINE NEGATIVE (NEGATIVE); BARBITURATE, URINE NEGATIVE (NEGATIVE); CANNABINOID, URINE NEGATIVE (NEGATIVE); COCCAINE, URINE NEGATIVE (NEGATIVE); OPIATE, URINE NEGATIVE (NEGATIVE)
[2025-05-04 16:16] LABS: BENZODIAZEPINE, URINE POSITIVE (NEGATIVE)
[2025-05-04] MEDS ORDERED: THIAMINE HCL 100 MG TABLET ONE (16:21)
[2025-05-04] MEDS: THIAMINE HCL 100 MG TABLET PO ONE (16:22)
[2025-05-04] MEDS: IV NS 0.9% 1,000 ML IV PRN (17:50)
[2025-05-04] MEDS: ASPIRIN 81 MG TAB.CHEW PO SCH (18:30)
[2025-05-04 18:43] VITALS: BP 149/84; TEMP 97.9; O2SAT 96
[2025-05-04 20:00] VITALS: BP 137/94; TEMP 98.4; O2SAT 100
[2025-05-04] MEDS: CHLORDIAZEPOXIDE HCL 25 MG CAPSULE PO SCH (20:21)
[2025-05-04] MEDS: HEPARIN SODIUM, PORCINE 5000 UNITS/1 ML VIAL SQ SCH (20:22)
[2025-05-04] MEDS: MIRTAZAPINE 45 MG TABLET PO SCH (21:11)
[2025-05-04] MEDS: ATORVASTATIN 10 MG TABLET PO SCH (21:11)
[2025-05-04 22:00] VITALS: BP 134/81; TEMP 98.2; O2SAT 100
[2025-05-05] VITALS: BP 134/81; TEMP 98.2; O2SAT 100
[2025-05-05 04:00] VITALS: BP 136/81; TEMP 98.2; O2SAT 100
[2025-05-05] MEDS: PANTOPRAZOLE 40 MG TABLET.DR PO SCH (06:33)
[2025-05-05 06:48] LABS: PLATELET COUNT (AUTO) 217 K/uL (150-450); RED BLOOD CELL COUNT(AUTO) 4.32 MIL/uL (4.0-5.2); RED CELL DISTRIBUTION WIDTH 17.7 % (11.5-15.0); WHITE BLOOD COUNT (AUTO) 8.6 K/uL (4.3-11.0)
[2025-05-05 07:09] LABS: CALCIUM, SERUM 7.2 mg/dL (8.5-10.1); CREATININE 1.6 mg/dL (0.6-1.3); PHOSPHORUS 3.1 mg/dL (2.5-4.9); SODIUM SERUM 147.0 mmol/L (136-145); UREA NITROGEN, BLOOD 11.0 mg/dL (7-18)
[2025-05-05] MEDS: ONDANSETRON HCL/PF 4 MG/2 ML VIAL IVP PRN (07:41)
[2025-05-05 08:00] VITALS: BP 167/96; TEMP 98.2; O2SAT 99
[2025-05-05] MEDS: FOLIC ACID 1 MG TABLET PO SCH (08:57)
[2025-05-05] MEDS: LINAGLIPTIN 5 MG TABLET PO SCH (08:57)
[2025-05-05] MEDS: SERTRALINE HCL 50 MG TABLET PO SCH (08:57)
[2025-05-05] MEDS: LISINOPRIL (5MG) 5 MG TABLET PO SCH (08:58)
[2025-05-05 12:00] VITALS: BP 154/81; TEMP 98.1; O2SAT 99
[2025-05-05] MEDS: MAGNESIUM OXIDE 400 MG TABLET PO ONE (13:04)
[2025-05-05] MEDS: POTASSIUM CHLORIDE 10 MEQ TABLET.SA PO SCH (13:04)
[2025-05-05] MEDS ORDERED: DEXTROSE 50%-WATER 50 ML DISP.SYRIN IV PRN (14:30)
[2025-05-05 16:00] VITALS: BP 149/92; TEMP 98.5; O2SAT 99
[2025-05-05] MEDS: Thiamine 100 MG in IV D5W 50 ML IV SCH (16:48)
[2025-05-05] MEDS: INSULIN REGULAR, HUMAN 100 UNIT/ML 3 ML VIAL SQ PRN (17:13)
[2025-05-05] MEDS: BLOOD SUGAR DIAGNOSTIC 1 EACH STRIP VI SCH (17:14)
[2025-05-05 20:00] VITALS: BP 135/75; TEMP 98.2; O2SAT 97
[2025-05-06] VITALS (7 sets, daily range): BP systolic 135–174; BP diastolic 86–100; TEMP 97.9–98.8; O2SAT 96–98
[2025-05-06] MEDS: *INSULIN REGULAR(HUMULIN R)HUM 100 UNIT/ML VIAL SQ PRN (00:01)
[2025-05-06 06:31] LABS: PLATELET COUNT (AUTO) 201 K/uL (150-450); RED BLOOD CELL COUNT(AUTO) 3.99 MIL/uL (4.0-5.2); RED CELL DISTRIBUTION WIDTH 17.6 % (11.5-15.0); WHITE BLOOD COUNT (AUTO) 8.1 K/uL (4.3-11.0)
[2025-05-06 07:10] LABS: ASPARTATE AMINOTRANSFERASE 15.0 U/L (15-37); CALCIUM, SERUM 7.6 mg/dL (8.5-10.1); CREATININE 1.4 mg/dL (0.6-1.3); PHOSPHORUS 2.1 mg/dL (2.5-4.9); SODIUM SERUM 146.0 mmol/L (136-145); TOTAL PROTEIN, SERUM 6.4 g/dL (6.4-8.2); UREA NITROGEN, BLOOD 11.0 mg/dL (7-18)
[2025-05-06] MEDS: THIAMINE HCL 100 MG TABLET PO SCH (08:44)
[2025-05-06] MEDS: Magnesium 1GM/D5W 100ML PREMIX 100 ML IV SCH (10:34)
[2025-05-06] MEDS: IV 1/2NS 1000 ML 1,000 ML IV SCH (11:35)
[2025-05-06] MEDS: MAG HYDROX/AL HYDROX/SIMETH 30 ML UDC PO PRN (11:39)
[2025-05-06] MEDS: CHLORDIAZEPOXIDE HCL 25 MG CAPSULE PO SCH (13:11)
[2025-05-06] MEDS: hydrALAZINE HCL IV 20 MG VIAL IV PRN (14:01)
[2025-05-06] MEDS: METFORMIN 500 MG TABLET PO SCH (16:47)
[2025-05-06] MEDS: K PHOS NEUTRAL 250 MG TABLET PO ONE (16:47)
[2025-05-07 04:00] VITALS: BP 143/83; TEMP 98; O2SAT 96
[2025-05-07 06:00] LABS: PLATELET COUNT (AUTO) 230 K/uL (150-450); RED BLOOD CELL COUNT(AUTO) 3.75 MIL/uL (4.0-5.2); RED CELL DISTRIBUTION WIDTH 17.4 % (11.5-15.0); WHITE BLOOD COUNT (AUTO) 8.8 K/uL (4.3-11.0)
[2025-05-07 06:06] LABS: ASPARTATE AMINOTRANSFERASE 12.0 U/L (15-37); CALCIUM, SERUM 8.7 mg/dL (8.5-10.1); CREATININE 1.2 mg/dL (0.6-1.3); PHOSPHORUS 1.1 mg/dL (2.5-4.9); SODIUM SERUM 142.0 mmol/L (136-145); TOTAL PROTEIN, SERUM 6.8 g/dL (6.4-8.2); UREA NITROGEN, BLOOD 9.0 mg/dL (7-18)
[2025-05-07 08:00] VITALS: BP 153/91; TEMP 98.4; O2SAT 99
[2025-05-07] MEDS: POTASSIUM CHLORIDE 20 MEQ TAB.PRT.SR PO SCH (10:08)
[2025-05-07] MEDS: MAGNESIUM OXIDE 400 MG TABLET PO ONE (10:09)
[2025-05-07 16:00] VITALS: BP 148/73; TEMP 97.5; O2SAT 99
[2025-05-07] MEDS: IV 1/2NS 1000 ML 1,000 ML IV PRN (17:19)
[2025-05-07 20:00] VITALS: BP 152/95; TEMP 97.7; O2SAT 99
[2025-05-08 04:00] VITALS: BP 156/96; TEMP 99; O2SAT 97
[2025-05-08 06:14] LABS: CALCIUM, SERUM 8.5 mg/dL (8.5-10.1); CREATININE 1.2 mg/dL (0.6-1.3); PHOSPHORUS 2.5 mg/dL (2.5-4.9); SODIUM SERUM 140.0 mmol/L (136-145); UREA NITROGEN, BLOOD 9.0 mg/dL (7-18)
[2025-05-08 08:00] VITALS: BP 143/100; TEMP 98.4; O2SAT 98
[2025-05-08 09:07] LABS: APPEARANCE,URINE CLEAR (CLEAR); BLOOD, URINE NEGATIVE Ery/uL (NEGATIVE); LEUKOCYTE ESTERASE ,URINE NEGATIVE (NEGATIVE); NITRITE, URINE NEGATIVE (NEGATIVE); UGLUCOSE NEGATIVE (NEGATIVE)
[2025-05-08 09:49] LABS: PLATELET COUNT (AUTO) 249 K/uL (150-450); RED BLOOD CELL COUNT(AUTO) 3.76 MIL/uL (4.0-5.2); RED CELL DISTRIBUTION WIDTH 17.2 % (11.5-15.0); WHITE BLOOD COUNT (AUTO) 7.8 K/uL (4.3-11.0)
[2025-05-08] MEDS: MAGNESIUM OXIDE 400 MG TABLET PO ONE (11:32)
[2025-05-08 16:00] VITALS: BP 138/97; TEMP 98.4; O2SAT 98
[2025-05-08] MEDS: GLUCERNA SHAKE 237 ML CAN PO SCH (17:44)
[2025-05-08 20:00] VITALS: BP 138/93; TEMP 98; O2SAT 94
[2025-05-09 04:00] VITALS: BP 177/102; TEMP 97.9; O2SAT 95
[2025-05-09 05:00] VITALS: BP 154/82
[2025-05-09 07:10] LABS: PLATELET COUNT (AUTO) 290 K/uL (150-450); RED BLOOD CELL COUNT(AUTO) 3.87 MIL/uL (4.0-5.2); RED CELL DISTRIBUTION WIDTH 16.8 % (11.5-15.0); WHITE BLOOD COUNT (AUTO) 9.0 K/uL (4.3-11.0)
[2025-05-09 07:35] LABS: CALCIUM, SERUM 9.1 mg/dL (8.5-10.1); CREATININE 1.4 mg/dL (0.6-1.3); SODIUM SERUM 140.0 mmol/L (136-145); UREA NITROGEN, BLOOD 12.0 mg/dL (7-18)
[2025-05-09 07:54] LABS: PHOSPHORUS 2.5 mg/dL (2.5-4.9)
[2025-05-09 08:00] VITALS: BP 138/80; TEMP 98.2; O2SAT 96
[2025-05-09] MEDS: MAGNESIUM OXIDE 400 MG TABLET PO ONE (09:18)
[2025-05-09 16:00] VITALS: BP 156/58; TEMP 98.2; O2SAT 96
[2025-05-09 20:00] VITALS: BP 141/83; TEMP 98.8; O2SAT 96
[2025-05-10 04:00] VITALS: BP 151/81; TEMP 98.4; O2SAT 97
[2025-05-10 06:39] LABS: PLATELET COUNT (AUTO) 288 K/uL (150-450); RED BLOOD CELL COUNT(AUTO) 3.61 MIL/uL (4.0-5.2); RED CELL DISTRIBUTION WIDTH 17.1 % (11.5-15.0); WHITE BLOOD COUNT (AUTO) 7.2 K/uL (4.3-11.0)
[2025-05-10 06:53] LABS: ASPARTATE AMINOTRANSFERASE 16.0 U/L (15-37); CALCIUM, SERUM 9.0 mg/dL (8.5-10.1); CREATININE 1.4 mg/dL (0.6-1.3); PHOSPHORUS 2.8 mg/dL (2.5-4.9); SODIUM SERUM 143.0 mmol/L (136-145); TOTAL PROTEIN, SERUM 6.1 g/dL (6.4-8.2); UREA NITROGEN, BLOOD 12.0 mg/dL (7-18)
[2025-05-10 08:00] VITALS: BP 151/95; TEMP 99.1; O2SAT 96
[2025-05-10] MEDS: MAGNESIUM OXIDE 400 MG TABLET PO ONE (10:07)
[2025-05-10 16:00] VITALS: BP 133/85; TEMP 98.6; O2SAT 97
[2025-05-10 20:00] VITALS: BP 156/79; TEMP 98.2; O2SAT 97
[2025-05-11 04:00] VITALS: BP 155/96; TEMP 98; O2SAT 97
[2025-05-11 06:50] LABS: PLATELET COUNT (AUTO) 346 K/uL (150-450); RED BLOOD CELL COUNT(AUTO) 3.62 MIL/uL (4.0-5.2); RED CELL DISTRIBUTION WIDTH 16.8 % (11.5-15.0); WHITE BLOOD COUNT (AUTO) 7.5 K/uL (4.3-11.0)
[2025-05-11 07:17] LABS: CALCIUM, SERUM 9.5 mg/dL (8.5-10.1); CREATININE 1.3 mg/dL (0.6-1.3); PHOSPHORUS 2.5 mg/dL (2.5-4.9); SODIUM SERUM 141.0 mmol/L (136-145); UREA NITROGEN, BLOOD 12.0 mg/dL (7-18)
[2025-05-11 07:53] LABS: ASPARTATE AMINOTRANSFERASE 27.0 U/L (15-37); TOTAL PROTEIN, SERUM 7.1 g/dL (6.4-8.2)
[2025-05-11 08:00] VITALS: BP 162/96; TEMP 98.8; O2SAT 96
[2025-05-11] MEDS ORDERED: MAGNESIUM OXIDE 400 MG TABLET PO SCH (11:00)
[2025-05-11] MEDS ORDERED: Thiamine HCL PO (11:58)
[2025-05-11] MEDS ORDERED: ASPI-1169 PO (11:58)
[2025-05-11] MEDS ORDERED: Folic Acid PO (11:58)
[2025-05-11 16:00] VITALS: BP 158/100; TEMP 98.1; O2SAT 96
== END 2025-05-11 18:22 | DRG 100 ==
LOC: ER 13:02 → TELE1 15:39 → MEDSG1 05-06 11:20
PROVIDERS: ADMIT Student in an Organized Health Care Education/Training Program; ATTEND Nurse Practitioner Family
DX: R56.9 Unspecified convulsions (principal); N17.0 Acute kidney failure with tubular necrosis; F10.139 Alcohol abuse with withdrawal, unspecified; E44.0 Moderate protein-calorie malnutrition; E87.0 Hyperosmolality and hypernatremia; E86.9 Volume depletion, unspecified; F41.9 Anxiety disorder, unspecified; E87.6 Hypokalemia; E11.9 Type 2 diabetes mellitus without complications; Z79.84 Long term (current) use of oral hypoglycemic drugs; Z79.4 Long term (current) use of insulin; Z79.899 Other long term (current) drug therapy; D72.829 Elevated white blood cell count, unspecified; I10 Essential (primary) hypertension; Z86.73 Personal history of transient ischemic attack (TIA), and cerebral infarction without residual deficits; F32.A Depression, unspecified; E78.5 Hyperlipidemia, unspecified; E83.39 Other disorders of phosphorus metabolism; E83.42 Hypomagnesemia; M89.8X9 Other specified disorders of bone, unspecified site; D64.9 Anemia, unspecified; Z78.1 Physical restraint status; Z82.49 Family history of ischemic heart disease and other diseases of the circulatory system
CPT/HCPCS: 36415; 70450-TC; 71045-TC; 80048-TC; 80053-TC; 80076-TC; 82140-TC; 82607-TC; 82962-TC; 83735-TC; 84100-TC; 84425; 85025-TC; 97110-TC; 97116-TC; 97530-TC; A4223; G0378; G0480; J0360; J1644; J1815; J2405; J3411; J3475; J3480; J3490; J7030; J7050; J7060